=== PATIENT | male | born 1970 | race Caucasian/White ===

== ENCOUNTER 2019-10-25 08:32 | Emergency (ER) | payer OTHER ==
[~2019-10-25] VITALS: Ht 180.3 cm; Wt 77.7 kg
[2019-10-25 08:42] VITALS: Ht 180.3 cm; Wt 77.7 kg
[2019-10-25 09:27] LABS: BASOPHILS 0.4 % (0-2); EOSINOPHILS 5.2 % (0-7); HEMATOCRIT 46.9 % (42.0-54.0); HEMOGLOBIN 16.2 g/dL (13.5-17.5); IMMATURE GRANULOCYTES 0.6 % (0-5); LYMPHOCYTES 28.3 % (15-50); MCH 31.3 pg (26.0-34.0); MCHC 34.5 g/dL (31.0-37.0); MCV 90.5 fL (80.0-100.0); MEAN PLATELET VOLUME 9.4 fL (7.4-10.4); MONOCYTES 5.9 % (2-11); NEUTROPHILS 59.6 % (40-80); PLATELET COUNT 241 10x3/uL (130-400); RBC 5.18 10x6/uL (4.20-6.10); RDW 13.6 % (11.5-14.5); WBC 8.5 10x3/uL (4.8-10.8)
[2019-10-25 09:29] LABS: CALC OSMOLALITY 276 mosm/kg (275-300); CALCIUM 8.4 mg/dL (8.5-10.1); CARBON DIOXIDE 25.7 mmol/L (21.0-32.0); CHLORIDE - SERUM 103 mmol/L (98-107); CREATININE - SERUM 1.2 mg/dL (0.6-1.3); GLUCOSE 103 mg/dL (74-106); POTASSIUM - SERUM 4.2 mmol/L (3.5-5.1); SODIUM 138 mmol/L (136-145); UREA NITROGEN 14 mg/dL (7-18); eGFR NON AFRICAN AMERICAN 68 mL/min (90-120)
[2019-10-25 09:32] LABS: APTT 31.2 SECONDS (22.8-39.4); INR 0.9 (0.85-1.17); PROTIME 12.1 SECONDS (11.6-15.0)
[2019-10-25 09:45] LABS: ALKALINE PHOSPHATASE 76 U/L (30-120); ALT (SGPT) 53 U/L (10-68); CKMB 2.7 U/L (0.0-3.6); CREATINE KINASE 162 UL (21-232); PROTEIN - SERUM 7.6 g/dL (6.4-8.2)
[2019-10-25 09:46] LABS: TROPONIN-I < 0.017 ng/mL (0.000-0.060)
[2019-10-25] MEDS ORDERED: ZPAK PO (09:53)
[2019-10-25] MEDS ORDERED: LISINOPRIL-HCT1 EAC4 PO (09:53)
[2019-10-25 10:50] VITALS: BP 134/88
== END 2019-10-25 10:51 | disposition home or self-care (01) ==
LOC: D.ER 08:32
PROVIDERS: Family Medicine
DX: R51 Headache (principal); I10 Essential (primary) hypertension